=== PATIENT | male | born 1980 | race African-American/Black ===

== ENCOUNTER 2021-09-17 06:22 | Emergency (ER) | payer SELFPAY ==
[~2021-09-17] VITALS: Ht 175.3 cm; Wt 92.1 kg
--- NOTE | 2021-09-17 06:35 | NUR ---
bibs for c/o dysuria x 2 days. -hematuria, -fever or chills. Pt A/OX4. Tolerating R/A well with no SOB; resp even and non labored. Ambulatory with steady gait. Safety Measures in place.
--- NOTE | 2021-09-17 06:45 | NUR ---
PT NOT ABLE TO URINATE AT THIS TIME; WILL F/U & TRY TO [facility]LE[facility] SAMPLE LATER.
--- NOTE | 2021-09-17 06:56 | NUR ---
DR. LAW CLEMENT AT PT'S BEDSIDE
[2021-09-17] MEDS ORDERED: CEFTRIAXONE 500 MG VIAL IM ONE (07:00)
[2021-09-17] MEDS ORDERED: DOXYCYCLINE HYCLATE (100 MG) 100 MG TABLET PO ONE (07:00)
[2021-09-17] MEDS ORDERED: LIDOCAINE /MPF 1% VIAL 5 ML VIAL ONE (07:04)
[2021-09-17] MEDS ORDERED: CEFTRIAXONE 500 MG VIAL ONE (07:04)
--- NOTE | 2021-09-17 07:23 | NUR ---
URINE COLLECTED AND SENT TO LAB
[2021-09-17] MEDS ORDERED: DOXY-326 PO (08:38)
--- NOTE | 2021-09-17 08:43 | NUR ---
Patient discharged to home in stable condition. Written and verbal after care instructions given. Patient verbalizes understanding of instruction.
[2021-09-17 08:44] VITALS: BP 140/80
[2021-09-17 08:45] LABS: BILIRUBIN,URINE NEGATIVE (NEGATIVE); COLOR,URINE YELLOW (YELLOW); LEUKOCYTE ESTERASE ,URINE NEGATIVE (NEGATIVE); NITRITE, URINE NEGATIVE (NEGATIVE); PH,URINE 6.5 (5.0-8.0); PROTEIN,URINE NEGATIVE (NEGATIVE); UGLUCOSE NEGATIVE (NEGATIVE); UROBILINOGEN,URINE 0.2 EU/dL (0.2)
== END 2021-09-17 08:44 | disposition home or self-care (01) ==
LOC: ER 06:27
DX: R30.0 Dysuria (principal); Z60.2 Problems related to living alone; Z79.899 Other long term (current) drug therapy
CPT/HCPCS: 81003; 87491; 87591; 96372; 99283; J0696; J3490